=== PATIENT | female | born 1980 | race Caucasian/White ===

== ENCOUNTER 2017-03-26 05:57 | Day surgery (SDC) | payer MEDICAID ==
[~2017-03-26] VITALS: Ht 180.3 cm; Wt 76.5 kg
--- NOTE | ~2017-03-26 | OR ---
PATIENT'S NAME: SH[facility]L [facility] AGE: 36 Y [address] ROOM: [place] [id number] LOC[place] [facility] [place] DATE: 03/26/2017 OR/Procedure Report DISCHARGE DATE: 03/26/2017 FAMILY PHYSICIAN: Flakita Avila APRN ATTENDING PHYSICIAN: Lv Ruiz SURGEON: Lv Ruiz MD PRODUCTION CONTROL ANALYST: DATE OF PROCEDURE: 03/26/2017 PREOPERATIVE DIAGNOSES: 1. Lumbar degenerative disk disease. 2. Lumbar stenosis. 3. Lumbar radiculopathy. 4. Lumbar spondylosis. 5. Status post anterior lumbar interbody fusion, L5-S1. POSTOPERATIVE DIAGNOSES: 1. Lumbar degenerative disk disease. 2. Lumbar stenosis. 3. Lumbar radiculopathy. 4. Lumbar spondylosis. 5. Status post anterior lumbar interbody fusion, L5-S1. PROCEDURES PERFORMED: 1. Lumbar hemilaminectomy, left L5-S1, with nerve root decompression. 2. Use of operating microscope. READING INTERVENTION TEACHER: None. ANESTHESIA: General. ESTIMATED BLOOD LOSS: 25 mL. COMPLICATIONS: None. SPECIMENS: None. FINDINGS: Facet hypertrophy and stenosis, left L5-S1. OPERATIVE INDICATIONS: The patient is a 36-year-old female with residual foraminal stenosis and radiculopathy after an ALIF at L5-S1. She was offered surgical treatment in the form of a foraminotomy and facetectomy to decompress that nerve root. After details, risks, benefits, and options were explained, she freely consented to surgery. PATIENT'S NAME: [facility] AGE: 36 Y [address] ROOM: [place] [id number] [place] [facility] [place]: 03/26/2017 OR/Procedure Report DISCHARGE DATE: 03/26/2017 FAMILY PHYSICIAN: Flakita Avila APRN ATTENDING PHYSICIAN: Lv Ruiz OPERATIVE NARRATIVE: After the patient was correctly identified and the operative site initialed, she was taken back to the operating room and placed in the supine position. After general anesthesia was induced, she was placed in the prone position on the Rico table with all bony prominences well- padded and protected. The back was prepped and draped in the usual sterile fashion. A time-out was taken to verify the patient and the procedure. She received IV antibiotics prior to surgery. Under fluoroscopic control, an 18- gauge spinal needle was advanced through the skin to dock on the left L5 lamina overlying the L5-S1 disk space. After successful docking, 10 mL of 0.25% Marcaine with epinephrine was injected and the needle withdrawn. Next, an 11 blade was used to make a 1-inch incision at the site of the needle placement. The fascia was opened in line with the incision. Successive tubular dilators were introduced through the incision under fluoroscopy up to a size 5 x 26 mm working retractor. The final retractor was locked in position over the disk space and was verified in AP and lateral views. Next, the microscope was brought in. Under illuminated magnified vision, the soft tissue was debrided from the underlying lamina and facet. A high-speed bur was used to create a defect. The ligamentum flavum was released, and then Kerrison was used to complete the decompression. Facetectomy was removed completely at the left L5-S1 level, and the nerve root was decompressed throughout its entire course. After the decompression was complete, the wound was irrigated and dried. There was no bleeding. Depo-Medrol 80 mg was injected dorsally over the nerve root. The tubular retractors were removed from the wound, and the fascia was closed with interrupted #1 Vicryl suture, 0 Vicryl on the subcutaneous tissue, and glue and Steri-Strips on the skin. Sterile dressing was applied, and the patient was awakened from anesthesia and taken to the recovery room in stable condition. MD NANCY GARNER/suzanna /[id number] d: 03/26/17 1426 t: 03/28/17 1227, OPERATIVE SUMMARY
[~2017-03-26 05:57] MED LIST: BUSPIRONE HCL15 MG PO; CALCIUM CARBON300 MG PO; CENTRUM CHEWAB1 EACH PO; CYMBALTA60 MG PO; FLEXERIL10 MG PO; KLONOPIN1 MG PO; MOBIC15 MG PO; TYLENOL EXTRA500 MG PO; VITAMIN B-121000 MCG PO; VITAMIN D35000 UNI1 PO; WELLBUTRIN XL300 M1 PO; WESTHROID PO
[2017-03-26] MEDS ORDERED: NORCO 10-325 T1 EACH PO (10:08)
--- NOTE | 2017-03-26 10:13 | NUR ---
1010 REPORT TO Nhan MODI RN
== END 2017-03-26 13:30 | disposition disaster alternative care site (69) ==
LOC: GSDC 05:57
PROC: 0SB20ZZ Excision of Lumbar Vertebral Disc, Open Approach (ICD-10-PCS; principal; 2017-03-26)
PROC: 01NB0ZZ Release Lumbar Nerve, Open Approach (ICD-10-PCS; 2017-03-26)
DX: M48.07 Spinal stenosis, lumbosacral region (principal); M51.17 Intervertebral disc disorders with radiculopathy, lumbosacral region; M47.27 Other spondylosis with radiculopathy, lumbosacral region; F32.9 Major depressive disorder, single episode, unspecified; E28.2 Polycystic ovarian syndrome; E07.9 Disorder of thyroid, unspecified; Z87.891 Personal history of nicotine dependence; Z98.1 Arthrodesis status; Z88.8 Allergy status to other drugs, medicaments and biological substances; Z79.899 Other long term (current) drug therapy
CPT/HCPCS: J0131; J0690; J1040; J1100; J2250; J2405; J7120